=== PATIENT | female | born 1960 | race Two or more races ===

== ENCOUNTER 2017-10-01 12:17 | Emergency (ER) | payer OTHER ==
[~2017-10-01] VITALS: Ht 147.3 cm; Wt 74.8 kg
[~2017-10-01 12:17] MED LIST: GLIMEPIRIDE4 MG; METFORMIN HCL500 MG
[2017-10-01] MEDS ORDERED: JANUMET XR 50-1 EACH (12:50)
[2017-10-01] MEDS ORDERED: ATORVASTATIN CA40 MG (12:51)
[2017-10-01] MEDS ORDERED: HYZAAR 100-251 EACH (12:51)
[2017-10-01] MEDS ORDERED: PEPCID20 MG (12:52)
[2017-10-01] MEDS ORDERED: PROTONIX40 MG (12:52)
== END 2017-10-01 18:49 | disposition home or self-care (01) ==
LOC: ER 12:17
DX: K80.20 Calculus of gallbladder without cholecystitis without obstruction (principal); R10.11 Right upper quadrant pain

== ENCOUNTER → 2017-10-05 | Outpatient (CLI) | payer OTHER ==
[~2017-10-05] MED LIST changes: +ATORVASTATIN CA40 MG; +HYZAAR 100-251 EACH; +JANUMET XR 50-1 EACH; +PEPCID20 MG; +PROTONIX40 MG
== END | disposition home or self-care (01) ==
LOC: MRI 07:38
DX: K80.10 Calculus of gallbladder with chronic cholecystitis without obstruction (principal)
CPT/HCPCS: 74181

== ENCOUNTER 2017-10-09 04:30 | Day surgery (SDC) | payer OTHER | END 2017-10-09 12:40 | disposition home or self-care (01) | LOC: CIR.AMB 04:30 | DX: K80.00 Calculus of gallbladder with acute cholecystitis without obstruction (principal) ==

== ENCOUNTER → 2023-04-21 | Emergency (ER) | payer OTHER ==
[~2023-04-21] VITALS: Ht 147.3 cm; Wt 64.9 kg
[~2023-04-21] MED LIST changes: +CLONAZEPAM1 M1 PO; +DIABETIC TUSSI118 M3 PO; +DUI500 PO; +METFORMIN HCL500 M3 PO; +NIFEDIPINE20 MG PO; +OMEPRAZOLE-BIC1 EAC1 PO; +PEPCID AC20 MG PO; +ROSUVASTATIN-E1 EAC1 PO; +ZOLOFT50 MG PO
[2023-04-21 17:35] LABS: HEMATOCRIT 34.8 % (36.0-45.00); HEMOGLOBIN 11.6 g/dL (12.0-15.00); MEAN CELL VOLUME 83.8 fL (80.00-100.00); MEAN CORPUSCULAR HGB CONC 33.4 g/dl (32.0-36.0); RED BLOOD COUNT 4.16 M/uL (4.00-6.00); RED CELL DISTRIBUTION WIDTH 13.9 % (11.5-14.5)
[2023-04-21 17:36] LABS: PH,URINE 6.5 (5.0-8.0); URINE APPEARANCE Cloudy; URINE BILIRRUBIN Negative (NEGATIVE); URINE BLOOD Negative; URINE COLOR Yellow; URINE GLUCOSE Negative (NEGATIVE); URINE LEUKOCYTE Moderate; URINE NITRATE Negative; URINE PROTEIN Negative (NEGATIVE)
[2023-04-21 17:37] LABS: PLATELET COUNT 124 K/uL (150-450)
[2023-04-21 17:40] LABS: URINE BACTERIA 1659.3 uL (0.0-1933); URINE EPITHELIAL CELLS 62.9 uL (0.0-38.8); URINE RBC 20.8 uL (0.0-20.8); URINE WBC 258.6 uL (0.0-23.2)
== END | disposition home or self-care (01) ==
LOC: ER 12:46
PROVIDERS: Nurse Practitioner Family
DX: U07.1 COVID-19 (principal); N39.0 Urinary tract infection, site not specified

== ENCOUNTER 2025-02-06 10:41 | Emergency (ER) | payer OTHER ==
[~2025-02-06] VITALS: Ht 147.3 cm; Wt 65.8 kg
[2025-02-06] MEDS ORDERED: CETIRIZINE HCL 5 MG/5 ML ML PO ONE (13:15)
[2025-02-06] MEDS ORDERED: KETOROLAC TROMETHAMINE 60 MG VIAL IM ONE ×2 (13:15→13:39)
[2025-02-06] MEDS ORDERED: CEFTRIAXONE SODIUM 1,000 MG VIAL IM ONE (13:15)
[2025-02-06] MEDS ORDERED: CEFTRIAXONE SODIUM 1,000 MG VIAL ONE (13:39)
[2025-02-06] MEDS ORDERED: CETIRIZINE HCL 5MG/5ML BLIST.PACK PO ONE (13:39)
[2025-02-06 14:15] LABS: BASO % 0.6 % (0.1-1.2); EOS # 0.13 (0.04-0.54); EOS % 1.4 % (0.7-7.0); LYMPH # 2.64 (1.18-3.74); LYMPH % 28.0 % (19.3-53.1); MEAN PLATELET VOLUME 12.40 fl (9.4-12.4); MONO # 0.67 (0.24-0.82); MONO % 7.1 % (4.7-12.5); NEUT # 5.93 (1.56-6.13); NEUT % 62.8 % (34.0-71.1); RED CELL DISTRIBUTION WIDTH 13.2 % (11.6-14.4)
[2025-02-06 14:49] LABS: COVID-19 AG NEGATIVE (NEGATIVE)
[2025-02-06] MEDS ORDERED: ZITHROMAX500 MG PO (15:15)
[2025-02-06] MEDS ORDERED: PEPCID AC20 MG PO (15:15)
== END 2025-02-06 16:05 | disposition home or self-care (01) ==
LOC: ER 10:41
PROVIDERS: General Practice
DX: J02.8 Acute pharyngitis due to other specified organisms (principal); Z20.822 Contact with and (suspected) exposure to COVID-19; E11.9 Type 2 diabetes mellitus without complications; Z79.84 Long term (current) use of oral hypoglycemic drugs; I10 Essential (primary) hypertension